=== PATIENT | female | born 1970 | race Caucasian/White ===

== ENCOUNTER 2016-03-22 14:44 | Emergency (ER) | payer OTHER ==
[2016-03-22] MEDS ORDERED: ONDANSETRON 4 MG VIAL ONE (15:39)
[2016-03-22] MEDS ORDERED: MORPHINE 4 MG/ML SYR ONE (15:39)
[2016-03-22] MEDS ORDERED: ORPHENADRINE 60 MG/2 ML AMP ONE (17:00)
[2016-03-22] MEDS ORDERED: DILAUDID 1 MG/ML AMP ONE (17:00)
== END 2016-03-22 18:32 | disposition home or self-care (01) ==
LOC: ER 14:44
DX: M13.862 Other specified arthritis, left knee (principal); M13.861 Other specified arthritis, right knee; M13.872 Other specified arthritis, left ankle and foot; M13.871 Other specified arthritis, right ankle and foot; M13.832 Other specified arthritis, left wrist; M54.16 Radiculopathy, lumbar region; M25.471 Effusion, right ankle; M25.461 Effusion, right knee; F17.200 Nicotine dependence, unspecified, uncomplicated; Z86.711 Personal history of pulmonary embolism; Z79.899 Other long term (current) drug therapy
CPT/HCPCS: 36415; 73562; 73610; 80053; 83880; 84439; 84443; 84550; 85025; 85652; 86038; 86060; 86141; 86431; 96374; 96375; 99284; J1170; J2270; J2405

== ENCOUNTER 2016-03-24 08:13 | Emergency (ER) | payer OTHER | END 2016-03-24 12:55 | disposition home or self-care (01) | LOC: ER 08:13 | DX: M79.661 Pain in right lower leg (principal); M25.461 Effusion, right knee; M25.471 Effusion, right ankle; F17.210 Nicotine dependence, cigarettes, uncomplicated; Z86.711 Personal history of pulmonary embolism | CPT/HCPCS: 36415; 80053; 85025; 85610; 85730; 93971 ==